=== PATIENT | female | born 1985 | race Caucasian/White ===

== ENCOUNTER 2017-05-18 07:38 | Inpatient (IN) | payer OTHER ==
[~2017-05-18] VITALS: Ht 157.5 cm; Wt 64.0 kg
[2017-05-18 08:05] VITALS: BP 128/75
[2017-05-18 08:28] LABS: ABSOLUTE BASOPHIL COUNT 0 /CUMM (0.0-0.2); ABSOLUTE EOSINOPHIL COUNT 0 /CUMM (0.0-0.7); ABSOLUTE GRANULOCYTE CT 12.1 /CUMM (1.4-6.5); ABSOLUTE LYMPH COUNT 1.2 /CUMM (1.2-3.4); ABSOLUTE MONOCYTE COUNT 0.7 /CUMM (0.10-0.60); BASOPHIL % 0.2 % (0.0-2.0); EOSINOPHIL % 0.2 % (0-5); GRANULOCYTE % 85.6 % (42.2-75.2); HEMATOCRIT 37.9 % (37-47); MEAN CORPUSCULAR HGB 28.5 PG (27.0-31.0); MEAN CORPUSCULAR HGB CONC 34.3 G/DL (33.0-37.0); MEAN CORPUSCULAR VOLUME 83.1 FL (81.0-99.0); MEAN PLATELET VOLUME 7.7 FL (7.4-10.4); PLATELET COUNT 283 /CUMM (130-400); RBC DISTRIBUTION WIDTH 13.8 % (11.5-14.5); RED BLOOD CELL CT 4.56 /CUMM (4.20-5.40); WHITE BLOOD CELL COUNT 14.2 /CUMM (4.8-10.8)
--- NOTE | 2017-05-18 08:54 | History & Physical ---
General Information and HPI MD Statement: I have seen and personally examined HERB WATKINS and documented this H&P. The patient is a 31 year old female at 39 weeks and 6 days gestation who presented with a chief complaint of labor pain. Source of Information: patient, old records Exam Limitations: no limitations History of Present Illness: pt has been sebastián since 2 am denies ROM, VB +FM. Pt well known to our practice Rh positive, GBS negative Allergies/Medications Allergies: Coded Allergies: codeine (Intermediate, vomiting 05/18/17) Compliance With Home Meds: GOOD Past History manager rental History : 1 Para: 0 Last Menstrual Period: 08/03/16 Estimated Delivery Date: 05/19/17 Past manager rental History: none Surgical History Pertinent Surgical History: none Past Family/Social History Psychosocial History Smoking Status: Never Smoked Review of Systems Review of Systems Constitutional: Reports: no symptoms. Denies: chills, fever. EENTM: Denies: blurred vision, double vision, visual changes. Cardiovascular: Denies: chest pain, edema. Respiratory: Denies: short of breath. GI: Denies: nausea, vomiting. Neurological/Psychological: Denies: anxiety, depressed. Exam & Diagnostic Data Last 24 Hrs of Vital Signs/I&O vss Vital Signs Date Time Temp Pulse Resp B/P B/P Pulse O2 O2 Flow FiO2 Mean Ox Delivery Rate 05/18 0805 128/75 Intake & Output 05/18 1600 05/18 0800 05/18 0000 Intake Total Output Total Balance Patient 141 lb Weight Obstetric Exam Wgt Gained During : 28# Pelvimetry: seems adequate Dilation (cm): 6 Effacement (%): 90 Station: 0 Membranes: intact Fluid: unknown Fundal Height (cm): 37 Multiple Gestation? No Contractions: Q2-3 min Infant #1 - FHR Baseline: 125 Category: 1 Estimated Weight: 3700G Presentation: vtx Patient for Induction? No Physical Exam General Appearance Alert, Oriented X3, Cooperative, Moderate Distress Skin No Rashes HEENT Atraumatic Neck Supple Cardiovascular Regular Rate Lungs Clear to Auscultation Abdomen Soft Neurological Normal Speech, Normal Tone Labs Blood Type & Rh: O pos Antibody Screen: neg Hct/Hgb & Platelets #1: 42.9/14/260 Hct/Hgb & Platelets #2: 37.6/11.8/272 Rubella: imm VDRL #1: nr VDRL #2: nr HbsAg: neg HIV #1: nr HIV #2 nr 1 Hr P Group B Strep: neg Initial Ultrasound: 10/13/2016 8w 6d Anatomy Ultrasound: 12/30/2016 normal Ultrasound for EFW: none Genetic Testing: declined Last 24 Hrs of Labs/Dominick: Laboratory Tests 05/18/17 0800: CBC w Diff MAN DIFF ORDERED, RBC 4.56, MCV 83.1, MCH 28.5, MCHC 34.3, RDW 13.8, MPV 7.7, Gran % 85.6 H, Lymphocytes % 8.8 L, Monocytes % 5.2, Eosinophils % 0.2, Basophils % 0.2, Absolute Granulocytes 12.1 H, Segmented Neutrophils Pending, Absolute Lymphocytes 1.2, Absolute Monocytes 0.7 H, Absolute Eosinophils 0, Absolute Basophils 0 05/18/17 0755: Urinalysis LIGHT H, Urine Color YEL, Urine Clarity HAZY H, Urine pH 6.0, Ur Specific [place] >= 1.030, Urine Protein NEG, Urine Ketones NEG, Urine Nitrite NEG, Urine Bilirubin NEG, Urine Urobilinogen 0.2, Ur Leukocyte Esterase NEG, Ur Microscopic SEDIMENT EXAMINED, Urine RBC 25-50 H, Urine WBC 1-3 H, Ur Epithelial Cells MOD H, Urine Crystals 1+ CA OX H, Urine Bacteria MOD H, Urine Mucus FEW, Urine Hemoglobin LARGE H, Urine Glucose NEG Assessment/Plan Assessment/Plan: IUP at term active labor requesting epidural Plan expectant management epidural As Ranked By This Provider Problem List: 1. Core Measures Venous Thromboembolism VTE Risk Factors / No Mechanical VTE Prophylaxis d/t LowRisk-No Interven Req'd No VTE Pharm Prophylaxis d/t LowRisk-No Interven Req'd Attending MD Review Statement Attending Statement Attending MD Statement: examined this patient, discussed with family, discussed w/nursing
--- NOTE | 2017-05-18 12:40 | PN- OBGYN ---
Surgical Brief Attending Note Brief Attending Note: after epidural placed AROM with thin meconium noted pt progressed to fully dilated and began pushing with epidural running
--- NOTE | 2017-05-18 15:02 | Labor & Delivery Summary ---
Delivery Summary Vaginal Delivery: Vaginal: vertex Episiotomy/Lacerations: Episiotomy/Lacerations: PARTIAL 3DEGREE Type: REPAIR WITH 0-POLYSORB Repair: THEN 3-0 POLYSORB Anesthesia: NRSSICAINE Placenta: Placenta: normal, 3 vessel Anesthesia: block Apgars - 1 Min: 9 Apgars - 5 Min: 9 Additional Comments: PARTIAL 3DEGREE REPAIRED IN THE USUAL MANNER PLACENTA FOLLOWED INTACT
[2017-05-19 08:43] LABS: ABSOLUTE BASOPHIL COUNT 0 /CUMM (0.0-0.2); ABSOLUTE EOSINOPHIL COUNT 0.1 /CUMM (0.0-0.7); ABSOLUTE GRANULOCYTE CT 14.9 /CUMM (1.4-6.5); ABSOLUTE LYMPH COUNT 1.9 /CUMM (1.2-3.4); ABSOLUTE MONOCYTE COUNT 1.5 /CUMM (0.10-0.60); BASOPHIL % 0.2 % (0.0-2.0); EOSINOPHIL % 0.4 % (0-5); GRANULOCYTE % 81.1 % (42.2-75.2); HEMATOCRIT 33.7 % (37-47); MEAN CORPUSCULAR HGB 28.2 PG (27.0-31.0); MEAN CORPUSCULAR HGB CONC 33.4 G/DL (33.0-37.0); MEAN CORPUSCULAR VOLUME 84.4 FL (81.0-99.0); MEAN PLATELET VOLUME 8.2 FL (7.4-10.4); PLATELET COUNT 246 /CUMM (130-400); RBC DISTRIBUTION WIDTH 14.4 % (11.5-14.5); RED BLOOD CELL CT 3.99 /CUMM (4.20-5.40); WHITE BLOOD CELL COUNT 18.4 /CUMM (4.8-10.8)
--- NOTE | 2017-05-19 09:24 | PN- Post Delivery/GYN ---
Subjective Subjective: doing well, no complaints. tolerate diet, void without difficulties, ambulating well Review of Systems Constitutional: Reports: no symptoms. Cardiovascular: Reports: no symptoms. Respiratory: Reports: no symptoms. Gastrointestinal: Reports: no symptoms. Genitourinary: Reports: see HPI. All Other Systems: Reviewed and Negative Objective Last 24 Hrs of Vital Signs/I&O VSS general: NAD Abdomen: soft, nontender, uterus firm, fundus below umbilicus, lochia mild Ext: DCT (-) Current Medications: Current Medications Sig/Brandt Start time Last Medication Dose Route Stop Time Status Admin Acetaminophen 650 MG Q4P PRN 05/18 1515 AC PO Bupivacaine HCl 10 ML .STK-MED ONE 05/18 1314 DC EPID 05/18 1315 Butorphanol Tartrate 1 MG Q4P PRN 05/18 0800 DC IV Butorphanol Tartrate 1 MG Q4P PRN 05/18 0800 DC IM Chloroprocaine HCl 30 ML ONCE ONE 05/18 1515 DC 05/18 SC 05/18 1516 1636 Docusate Sodium 100 MG .STK-MED ONE 05/19 0003 DC PO 05/19 0004 Docusate Sodium 100 MG BID PRN 05/18 1515 AC 05/19 PO 0815 Hydroxyzine HCl 50 MG AT BEDTIME NEED.. 05/18 1515 AC PO Ibuprofen 800 MG .STK-MED ONE 05/19 0003 DC PO 05/19 0004 Ibuprofen 800 MG Q6P PRN 05/18 1515 AC 05/19 PO 0815 Lactated Ringer's 1,000 ML Q8H 05/18 0800 DC 05/18 IV 1009 Magnesium Hydroxide 30 ML DAILY NEEDED PRN 05/18 1515 AC PO Oxytocin 20 UNITS Q5H 05/18 1515 DC 05/18 Lactated Ringer's 1,000 ML IV 05/18 2014 1636 Last 24 Hrs of Labs/Dominick: Laboratory Tests 05/19/17 0630: CBC w Diff NO MAN DIFF REQ, RBC 3.99 L, MCV 84.4, MCH 28.2, MCHC 33.4, RDW 14.4 , MPV 8.2, Gran % 81.1 H, Lymphocytes % 10.2 L, Monocytes % 8.1, Eosinophils % 0.4, Basophils % 0.2, Absolute Granulocytes 14.9 H, Absolute Lymphocytes 1.9, Absolute Monocytes 1.5 H, Absolute Eosinophils 0.1, Absolute Basophils 0 Assessment/Plan Assessment/Plan 31yo, s/p , PPD#1 1. encourage ambulation an dbreastfeeding 2. pain management as needed 3.RT PP care Problem List: 1. Attending MD Review Statement Attending Statement Attending MD Statement: examined this patient, discussed with family, discussed with nursing
--- NOTE | 2017-05-20 12:03 | PN- OBGYN ---
Surgical Brief Attending Note Brief Attending Note: PT FEELING WELL. AMB, VOID, SACHIN PO.+BF. PAIN WELL CONTROLLED. AFEB, V/SS NAD ABD SOFT NT FF NOMAN MIN LOCHIA EXT NT NO ED A/P PPD 2 S/P , DOING WELL D/C HOME HOME W/ F/U 2 WKS D/C INSTRUCTIONS REVIEWED
[2017-05-20] MEDS ORDERED: IBUPROFEN800 M1 PO (12:04)
== END 2017-05-20 13:20 | DRG 775 ==
LOC: CBCO 07:38 → GNO 07:51 → CBCO 05-19 08:00 → GNO 05-20 13:20
PROVIDERS: Obstetrics & Gynecology
PROC: 0DQR0ZZ Repair Anal Sphincter, Open Approach (ICD-10-PCS; principal; 2017-05-18)
PROC: 10E0XZZ Delivery of Products of Conception, External Approach (ICD-10-PCS; principal; 2017-05-18)
DX: O70.20 Third degree perineal laceration during delivery, unspecified (principal); Z37.0 Single live birth; Z3A.39 39 weeks gestation of pregnancy
CPT/HCPCS: GNOS; 36415; 81001; 87086; 88307; J7120